=== PATIENT | male | born 1980 | race Caucasian/White ===

== ENCOUNTER 2019-06-16 17:02 | Emergency (ER) | payer SELFPAY ==
[~2019-06-16] VITALS: Ht 177.8 cm; Wt 88.0 kg
[2019-06-16 17:17] VITALS: BP 157/114
== END 2019-06-16 20:21 | disposition left against medical advice (07) ==
LOC: ER 17:02
DX: R07.9 Chest pain, unspecified (principal); R42 Dizziness and giddiness; Z53.21 Procedure and treatment not carried out due to patient leaving prior to being seen by health care provider
CPT/HCPCS: 93005